=== PATIENT | male | born 1955 | race Caucasian/White ===

== ENCOUNTER → 2021-04-03 | Outpatient (CLI) | payer OTHER ==
--- NOTE | 2021-04-03 11:01 | RAD ---
EXAM: Bilateral knees, 2 views. HISTORY: Arthritis. COMPARISON: None. FINDINGS: 2 views of both knees are obtained. There is moderate left greater than right medial compar tment and mild left lateral compartment joint space narrowing. There is also moderate left and mild r ight patellofemoral compartment spurring and left greater than right medial and lateral compartment s ubchondral sclerosis and spurring. There is degenerative subchondral cyst along the lateral left tibi al plateau. There is bony remodeling involving the left medial compartment and left greater than righ t genu varus. There is a moderate left knee effusion. There are bilateral intra-articular osteophytes . IMPRESSION: 1. Moderate medial and patellofemoral compartment predominant osteoarthritis of left knee with medial compartment bony remodeling, genu varus and a moderate joint effusion. 2. Mild medial compartment predominant osteoarthritis of the right knee with genu varus. Electronically signed by: Sonia Haq MD (04/03/2021 10:58 AM) [id number]
--- NOTE | 2021-04-03 12:20 | RAD ---
EXAM: Bilateral ankles, 2 views. HISTORY: Arthritis. COMPARISON: None. FINDINGS: Left ankle: 2 views of the left ankle are obtained. There is no fracture, dislocation or subluxation. The ankle mortise is intact. There is no osteochondral lesion. There are incidental vascular calcifi cations. Right ankle: 2 views of the right ankle are obtained. There is near complete loss of the subtalar nicolasa nt space with associated subchondral sclerosis, subchondral cyst formation and bony remodeling. There is also deformity of the medial talar dome likely due to an osteochondral lesion. There is deformity of the posterior lower chest which may be due to a partially nonunited fracture. This may be superim posed on degenerative subchondral sclerosis and subchondral cyst formation. There is a small benign o sseous excrescence along the lateral aspect of the lateral malleolus. There is soft tissue edema. The re is a tiny ossicle along the anterior talus. IMPRESSION: 1. 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 There is also deformity of the right med ial talar dome, the appearance of which favors an osteochondral lesion with superimposed osteoarthrit is and there is lucency along the articular aspect of the right posterior malleolus which may be due to remote trauma. 2. No acute finding or significant osteoarthritis involving the left ankle. Electronically signed by: Sonia Haq MD (04/03/2021 12:17 PM) [id number]
== END ==
LOC: PF 09:49
PROVIDERS: ATTEND Family Medicine
DX: M19.171 Post-traumatic osteoarthritis, right ankle and foot (principal); M21.6X1 Other acquired deformities of right foot; R60.9 Edema, unspecified; M17.12 Unilateral primary osteoarthritis, left knee; M25.862 Other specified joint disorders, left knee; M25.462 Effusion, left knee; M76.892 Other specified enthesopathies of left lower limb, excluding foot; M76.891 Other specified enthesopathies of right lower limb, excluding foot; M25.762 Osteophyte, left knee; M25.761 Osteophyte, right knee
CPT/HCPCS: 73600; 94010; 73560-50